=== PATIENT | female | born 1980 | race Caucasian/White ===

== ENCOUNTER 2020-05-23 18:01 | Observation (INO) | payer BC ==
[~2020-05-23] VITALS: Ht 170.2 cm; Wt 107.5 kg
[2020-05-23] MEDS ORDERED: AMPICILLIN SODIUM 2 GM in NS 100 ML IV ONE (19:00)
[2020-05-23] MEDS ORDERED: LR 1,000 ML IV SCH (19:00)
[2020-05-23] MEDS ORDERED: NALBUPHINE HCL 10 MG/ML AMP IVP PRN (19:00)
[2020-05-23] MEDS ORDERED: LR 1,000 ML IV ONE (19:00)
[2020-05-23 19:30] LABS: BILIRUBIN,URINE NEGATIVE (NEGATIVE); BLOOD, URINE NEGATIVE (NEGATIVE); CLARITY/URINE CLEAR (CLEAR); COLOR,URINE YELLOW (YELLOW); GLUCOSE,URINE NEGATIVE (NEGATIVE); KETONES,URINE NEGATIVE (NEGATIVE); LEUKOCYTE ESTERASE ,URINE 2+ (NEGATIVE); NITRITE, URINE NEGATIVE (NEGATIVE); PROTEIN URINE TRACE (NEGATIVE); UROBILINOGEN,URINE 0.2 (0.2-1.0)
[2020-05-23 19:39] LABS: BASOPHILS % (AUTO) 0.5 % (0.0-2.0); EOSINOPHILS # (AUTO) 0.1 K/uL (0.0-0.4); EOSINOPHILS % (AUTO) 0.7 % (0.0-4.0); HEMOGLOBIN 11.1 g/dL (12.0-16.0); LYMPHOCYTES # (AUTO) 1.7 K/uL (1.0-5.5); LYMPHOCYTES % (AUTO) 17.5 % (20.5-51.5); MEAN CORPUSCULAR HEMOGLOBIN 28 pg (27-31); MEAN CORPUSCULAR HGB CONC 34 % (32-36); MEAN CORPUSCULAR VOLUME 84 fL (79.0-98.0); MONOCYTES # (AUTO) 0.7 K/uL (0.0-1.0); MONOCYTES % (AUTO) 7.4 % (1.7-9.3); NEUTROPHILS # (AUTO) 7.3 K/uL (1.8-7.7); NEUTROPHILS % (AUTO) 73.9 % (40.0-70.0); PLATELET COUNT (AUTO) 322 K/uL (130-430); RED BLOOD CELL COUNT(AUTO) 3.91 MIL/uL (4.2-6.2); RED CELL DISTRIBUTION WIDTH 15.5 % (9.0-15.0); WHITE BLOOD COUNT (AUTO) 9.9 K/uL (4.8-10.8)
[2020-05-23 19:46] LABS: BACTERIA,URINE MODERATE /HPF (None Seen)
[2020-05-23 20:08] LABS: POTASSIUM 3.7 mmol/L (3.5-5.1)
[2020-05-23 20:09] LABS: CALCIUM 8.6 mg/dL (8.4-11.0); CREATININE 0.58 mg/dL (0.55-1.30)
[2020-05-23 20:10] LABS: ALBUMIN 2.4 g/dL (3.4-4.8); TOTAL BILIRUBIN 0.2 mg/dL (0.0-1.0)
[2020-05-23 20:12] LABS: URIC ACID 3.9 mg/dL (2.4-7.0)
[2020-05-23 20:14] LABS: INR 0.9 (0.8-1.2); PROTHROMBIN TIME 9.2 SECS (9.5-12.5)
== END 2020-05-23 23:49 | disposition home or self-care (01) ==
LOC: SPU 18:01 → OBSVTOIN 18:01 → INTOOBSV 18:01
PROVIDERS: ADMIT Specialist; ATTEND Specialist
DX: O62.9 Abnormality of forces of labor, unspecified (principal); Z3A.34 34 weeks gestation of pregnancy; Z79.899 Other long term (current) drug therapy
CPT/HCPCS: 36415; 80053; 81000; 84550; 85025; 85384; 85610; 85730; 86592; 86886; 86900; 86901; 87086; G0378; J0290

== ENCOUNTER 2020-05-24 09:39 | Inpatient (IN) | payer BC, SELFPAY ==
[~2020-05-24] VITALS: Ht 170.2 cm; Wt 107.5 kg
[2020-05-24] MEDS ORDERED: MAGNESIUM SULFATE IN WATER 100 ML IV ONE (10:15)
[2020-05-24] MEDS ORDERED: MAGNESIUM SULFATE IN WATER 500 ML IV PRN (10:15)
[2020-05-24] MEDS ORDERED: OXYTOCIN/0.9 % SODIUM CHLORIDE 1,000 ML IV SCH ×3 (10:15→17:30)
[2020-05-24] MEDS ORDERED: AZITHROMYCIN 500 MG in NS 250 ML IV ONE (10:15)
[2020-05-24] MEDS ORDERED: TERBUTALINE SULFATE 1 MG/ML VIAL SUBCUT ONE (10:15)
[2020-05-24] MEDS ORDERED: LR 1,000 ML IV SCH (10:15)
[2020-05-24] MEDS ORDERED: LR 1,000 ML IV ONE (10:15)
[2020-05-24 10:45] LABS: BASOPHILS # (AUTO) 0.1 K/uL (0.0-0.2); BASOPHILS % (AUTO) 0.6 % (0.0-2.0); EOSINOPHILS # (AUTO) 0.2 K/uL (0.0-0.4); EOSINOPHILS % (AUTO) 1.4 % (0.0-4.0); HEMATOCRIT 32.9 % (36-48); LYMPHOCYTES # (AUTO) 1.8 K/uL (1.0-5.5); LYMPHOCYTES % (AUTO) 16.8 % (20.5-51.5); MEAN CORPUSCULAR HEMOGLOBIN 28 pg (27-31); MEAN CORPUSCULAR HGB CONC 33 % (32-36); MEAN CORPUSCULAR VOLUME 84 fL (79.0-98.0); MONOCYTES # (AUTO) 0.8 K/uL (0.0-1.0); MONOCYTES % (AUTO) 7.6 % (1.7-9.3); NEUTROPHILS # (AUTO) 7.8 K/uL (1.8-7.7); NEUTROPHILS % (AUTO) 73.6 % (40.0-70.0); PLATELET COUNT (AUTO) 325 K/uL (130-430); RED BLOOD CELL COUNT(AUTO) 3.91 MIL/uL (4.2-6.2); RED CELL DISTRIBUTION WIDTH 15.2 % (9.0-15.0); WHITE BLOOD COUNT (AUTO) 10.5 K/uL (4.8-10.8)
[2020-05-24] MEDS ORDERED: MAGNESIUM SULFATE 50 ML IV ONE (10:45)
[2020-05-24] MEDS ORDERED: ROPIVACAINE HCL/PF 0.2% 200 ML ONE (10:56)
[2020-05-24] MEDS ORDERED: fentaNYL CITRATE/PF 100 MCG/2 ML AMP ONE (10:56)
[2020-05-24] MEDS ORDERED: NALOXONE HCL 0.4 MG/ML AMP (NARCAN) IVP PRN ×3 (11:30→23:15)
[2020-05-24] MEDS ORDERED: FENT2mCg/mL-ROPIVA0.2%/NS EPID 200 ML EP SCH (11:30)
[2020-05-24] MEDS ORDERED: ONDANSETRON HCL 4 MG/2 ML VIAL IVP PRN (11:30)
[2020-05-24] MEDS ORDERED: DIPHENHYDRAMINE INJ 50 MG/ML VIAL IVP PRN (11:30)
[2020-05-24] MEDS ORDERED: AMPICILLIN SODIUM 2 GM in NS 100 ML IV SCH (12:00)
[2020-05-24] MEDS ORDERED: OXYTOCIN 10 UNIT/ML VIAL ONE (15:32)
[2020-05-24] MEDS ORDERED: MEASLES,MUMPS&RUBELLA VACC/PF 12500 UNIT/0.5 ML VIAL SUBQ PRN ×2 (17:00→17:30)
[2020-05-24] MEDS ORDERED: DIPH-TET-PERTUS Vaccine 0.5 ML VIAL (ADACEL) I.M. PRN ×2 (17:00→17:30)
[2020-05-24] MEDS ORDERED: LANOLIN 7 GM OINT. TP PRN ×2 (17:00→17:30)
[2020-05-24] MEDS ORDERED: DOCUSATE SODIUM 100 MG CAPSULE PO PRN (17:00)
[2020-05-24] MEDS ORDERED: HYDROCORTISONE 0.5%, 28.35 GM TOPICAL CREAM TP PRN ×2 (17:00→17:30)
[2020-05-24] MEDS ORDERED: RHO(D) IMMUNE GLOBULIN/MALTOSE 1500 UNITS/1.3 ML (WINHRO) IM PRN ×2 (17:00→17:30)
[2020-05-24] MEDS ORDERED: HYDROcodone/ACETAMIN 5-325 MG TAB (NORCO/ VICODIN) PO PRN ×3 (17:00→23:15)
[2020-05-24] MEDS ORDERED: OXYTOCIN/0.9 % SODIUM CHLORIDE 1,000 ML IV ONE ×2 (17:00→17:30)
[2020-05-24] MEDS ORDERED: WITCH HAZEL LEAF 1 MED.PAD MED.PAD TP PRN ×2 (17:00→17:30)
[2020-05-24] MEDS ORDERED: OXYCODONE/ACETAMINOPHEN 5-325 TABLET PO PRN ×6 (17:00→23:15)
[2020-05-24] MEDS ORDERED: METHYLERGONOVINE MALEATE 0.2 MG TABLET PO PRN (17:30)
[2020-05-24] MEDS ORDERED: DERMOPLAST SPRAY TP PRN (17:30)
[2020-05-24] MEDS ORDERED: SENNOSIDES/DOCUSATE SODIUM 1 TAB TABLET(SENOKOT-S) PO PRN (17:30)
[2020-05-24] MEDS ORDERED: ANUSOL 1 EA SUPP.RECT (PREPARATION H) RC PRN (17:30)
[2020-05-24] MEDS ORDERED: IBUPROFEN 600 MG TABLET PO SCH (18:00)
[2020-05-24] MEDS: IBUPROFEN 600 MG TABLET PO SCH (18:07)
[2020-05-24 19:44] VITALS: BP_SYST 167
[2020-05-24] MEDS ORDERED: TEMAZEPAM 15 MG CAPSULE PO PRN ×2 (21:00)
[2020-05-25] MEDS: IBUPROFEN 600 MG TABLET PO SCH ×4 (06:06→17:45)
[2020-05-25 08:21] LABS: HEMATOCRIT 32.4 % (36-48); HEMOGLOBIN 10.7 g/dL (12.0-16.0)
[2020-05-25] MEDS ORDERED: AZITHROMYCIN 250 MG in NS 250 ML IV SCH (10:00)
[2020-05-26] MEDS: IBUPROFEN 600 MG TABLET PO SCH ×5 (00:02→23:28)
[2020-05-26] MEDS: DOCUSATE SODIUM 100 MG CAPSULE PO PRN ×2 (00:03→06:00)
== END 2020-05-26 23:31 | disposition home or self-care (01) | DRG 805 ==
LOC: SPU 09:39
PROVIDERS: ADMIT Specialist; ATTEND Specialist
PROC: 10E0XZZ Delivery of Products of Conception, External Approach (ICD-10-PCS; principal; 2020-05-24)
PROC: 3E0R3BZ Introduction of Anesthetic Agent into Spinal Canal, Percutaneous Approach (ICD-10-PCS; 2020-05-24)
PROC: 00HU33Z Insertion of Infusion Device into Spinal Canal, Percutaneous Approach (ICD-10-PCS; 2020-05-24)
DX: O69.81X0 Labor and delivery complicated by cord around neck, without compression, not applicable or unspecified (principal); O60.14X0 Preterm labor third trimester with preterm delivery third trimester, not applicable or unspecified; Z37.2 Twins, both liveborn; Z20.822 Contact with and (suspected) exposure to COVID-19; Z3A.34 34 weeks gestation of pregnancy
CPT/HCPCS: 36415; 85018-TC; 85025; 86592; J0290; J0456; J2590; J3010; J3475; J7050

== ENCOUNTER 2022-11-28 17:25 | Emergency (ER) | payer BC ==
[~2022-11-28] VITALS: Ht 170.2 cm; Wt 95.3 kg
[2022-11-28 17:44] VITALS: BP_SYST 124; PULSE 82; RESP 16; TEMP 97.7; O2SAT 97
[2022-11-28] MEDS ORDERED: NACL 0.9% 1,000 ML IV ONE (18:15)
[2022-11-28] MEDS ORDERED: KETOROLAC TROMETHAMINE 30 MG VIAL IVP ONE (18:15)
[2022-11-28 18:56] LABS: BASOPHILS % (AUTO) 0.5 % (0.0-2.0); EOSINOPHILS # (AUTO) 0.2 K/uL (0.0-0.4); EOSINOPHILS % (AUTO) 2.2 % (0.0-4.0); HEMATOCRIT 38.7 % (36-48); HEMOGLOBIN 12.8 g/dL (12.0-16.0); LYMPHOCYTES # (AUTO) 2.2 K/uL (1.0-5.5); LYMPHOCYTES % (AUTO) 23.2 % (20.5-51.5); MEAN CORPUSCULAR HEMOGLOBIN 29 pg (27-31); MEAN CORPUSCULAR HGB CONC 33 % (32-36); MEAN CORPUSCULAR VOLUME 86 fL (79.0-98.0); MONOCYTES # (AUTO) 0.4 K/uL (0.0-1.0); MONOCYTES % (AUTO) 4.3 % (1.7-9.3); NEUTROPHILS # (AUTO) 6.8 K/uL (1.8-7.7); NEUTROPHILS % (AUTO) 69.8 % (40.0-70.0); PLATELET COUNT (AUTO) 402 K/uL (130-430); RED BLOOD CELL COUNT(AUTO) 4.48 MIL/uL (4.2-6.2); RED CELL DISTRIBUTION WIDTH 12.7 % (9.0-15.0); WHITE BLOOD COUNT (AUTO) 9.7 K/uL (4.8-10.8)
[2022-11-28 18:59] LABS: CALCIUM 8.8 mg/dL (8.4-11.0); CREATININE 0.62 mg/dL (0.55-1.30); POTASSIUM 3.9 mmol/L (3.5-5.1)
[2022-11-28 18:59] LABS: BILIRUBIN,URINE NEGATIVE (NEGATIVE); BLOOD, URINE NEGATIVE (NEGATIVE); CLARITY/URINE CLEAR (CLEAR); COLOR,URINE YELLOW (YELLOW); GLUCOSE,URINE NEGATIVE (NEGATIVE); KETONES,URINE NEGATIVE (NEGATIVE); LEUKOCYTE ESTERASE ,URINE NEGATIVE (NEGATIVE); NITRITE, URINE NEGATIVE (NEGATIVE); PROTEIN URINE NEGATIVE (NEGATIVE)
[2022-11-28 19:04] LABS: ALBUMIN 3.6 g/dL (3.4-4.8); TOTAL BILIRUBIN 0.2 mg/dL (0.0-1.0); TOTAL PROTEIN, SERUM 7.2 g/dL (6.4-8.3)
[2022-11-28] MEDS ORDERED: KETO10TA2 PO (20:54)
[2022-11-28 21:27] VITALS: BP_SYST 141; PULSE 72; RESP 18; TEMP 98.3; O2SAT 99
== END 2022-11-28 21:26 | disposition home or self-care (01) ==
LOC: SED 17:25
DX: N23 Unspecified renal colic (principal); Z79.899 Other long term (current) drug therapy
CPT/HCPCS: 99285; 74176; 96374; 96361; 80053; 83690; 85025; 36415; 76376; 81003; J1885; J7030

== ENCOUNTER 2022-12-10 11:21 | Inpatient (IN) | payer BC ==
[~2022-12-10] VITALS: Ht 170.2 cm; Wt 100.7 kg
[~2022-12-10 11:21] MED LIST: KETO10TA2 PO
[2022-12-10 11:34] VITALS: BP_SYST 93; PULSE 73; RESP 20; TEMP 98; O2SAT 96
[2022-12-10] MEDS ORDERED: MORPHINE 4 MG INJ. 4 MG/ML VIAL IVP ONE ×2 (12:00→14:15)
[2022-12-10] MEDS ORDERED: ONDANSETRON HCL 4 MG/2 ML VIAL IVP ONE (12:00)
[2022-12-10 12:24] LABS: BASOPHILS # (AUTO) 0.1 K/uL (0.0-0.2); BASOPHILS % (AUTO) 0.6 % (0.0-2.0); EOSINOPHILS # (AUTO) 0.2 K/uL (0.0-0.4); EOSINOPHILS % (AUTO) 1.8 % (0.0-4.0); HEMATOCRIT 38.3 % (36-48); HEMOGLOBIN 12.8 g/dL (12.0-16.0); LYMPHOCYTES # (AUTO) 2.5 K/uL (1.0-5.5); MEAN CORPUSCULAR HEMOGLOBIN 29 pg (27-31); MEAN CORPUSCULAR HGB CONC 34 % (32-36); MEAN CORPUSCULAR VOLUME 86 fL (79.0-98.0); MONOCYTES # (AUTO) 0.4 K/uL (0.0-1.0); MONOCYTES % (AUTO) 4.2 % (1.7-9.3); NEUTROPHILS # (AUTO) 5.9 K/uL (1.8-7.7); NEUTROPHILS % (AUTO) 65.4 % (40.0-70.0); PLATELET COUNT (AUTO) 503 K/uL (130-430); RED BLOOD CELL COUNT(AUTO) 4.45 MIL/uL (4.2-6.2); RED CELL DISTRIBUTION WIDTH 13.1 % (9.0-15.0)
[2022-12-10 12:30] LABS: CREATININE 0.63 mg/dL (0.55-1.30); POTASSIUM 3.8 mmol/L (3.5-5.1)
[2022-12-10 12:35] LABS: ALBUMIN 3.5 g/dL (3.4-4.8); TOTAL BILIRUBIN 0.4 mg/dL (0.0-1.0); TOTAL PROTEIN, SERUM 7.2 g/dL (6.4-8.3)
[2022-12-10] MEDS ORDERED: MORPHINE 4 MG INJ. 4 MG/ML VIAL ONE (14:13)
[2022-12-10 14:15] LABS: BILIRUBIN,URINE 1+ (NEGATIVE); CLARITY/URINE CLEAR (CLEAR); COLOR,URINE YELLOW (YELLOW); GLUCOSE,URINE NEGATIVE (NEGATIVE); KETONES,URINE TRACE (NEGATIVE); PROTEIN URINE TRACE (NEGATIVE)
[2022-12-10 14:16] LABS: BLOOD, URINE NEGATIVE (NEGATIVE); LEUKOCYTE ESTERASE ,URINE NEGATIVE (NEGATIVE); NITRITE, URINE NEGATIVE (NEGATIVE)
[2022-12-10 14:24] LABS: BACTERIA,URINE FEW /HPF (None Seen)
[2022-12-10 14:25] LABS: MUCUS,URINE 1+ /LPF (None Seen)
[2022-12-10] MEDS ORDERED: MORPHINE 2 MG/ML INJ. SYRINGE IVP PRN ×2 (16:15)
[2022-12-10] MEDS ORDERED: POTASSIUM CHLORIDE 20 MEQ TAB.PRT.SR PO PRN (16:15)
[2022-12-10] MEDS ORDERED: ONDANSETRON HCL 4 MG/2 ML VIAL IVP PRN (16:15)
[2022-12-10] MEDS ORDERED: ACETAMINOPHEN 325 MG TABLET PO PRN ×2 (16:15)
[2022-12-10] MEDS ORDERED: MUPIROCIN 2% TOPICAL OINTMENT 22 GM NS PRN (16:15)
[2022-12-10] MEDS ORDERED: LORazepam 2 MG/ML VIAL IVP PRN (16:15)
[2022-12-10] MEDS ORDERED: MAGNESIUM SULFATE 50 ML IV PRN (16:15)
[2022-12-10] MEDS ORDERED: DOCUSATE SODIUM 100 MG CAPSULE PO PRN (16:15)
[2022-12-10] MEDS ORDERED: cefTRIAXone 1 GM IVPB PREMIX 50 ML IV ONE ×2 (16:30→17:15)
[2022-12-10] MEDS: NACL 0.9% 1,000 ML IV SCH (17:46)
[2022-12-10 17:54] VITALS: BP_SYST 123; PULSE 76; RESP 18; TEMP 97.1; O2SAT 97
[2022-12-10 18:05] VITALS: BP_SYST 123; PULSE 76; RESP 18; TEMP 97.1
[2022-12-10 18:16] VITALS: O2SAT 96
[2022-12-10 20:05] VITALS: BP_SYST 115; PULSE 76; RESP 17; TEMP 96.9; O2SAT 99
[2022-12-11 00:29] VITALS: BP_SYST 112; PULSE 73; RESP 15; TEMP 96.8; O2SAT 99
[2022-12-11] MEDS: NACL 0.9% 1,000 ML IV SCH ×3 (05:20→22:30)
[2022-12-11 06:15] LABS: BASOPHILS % (AUTO) 0.2 % (0.0-2.0); EOSINOPHILS # (AUTO) 0.1 K/uL (0.0-0.4); EOSINOPHILS % (AUTO) 0.7 % (0.0-4.0); HEMATOCRIT 29.3 % (36-48); HEMOGLOBIN 9.8 g/dL (12.0-16.0); LYMPHOCYTES # (AUTO) 2.3 K/uL (1.0-5.5); LYMPHOCYTES % (AUTO) 18.8 % (20.5-51.5); MEAN CORPUSCULAR HEMOGLOBIN 29 pg (27-31); MEAN CORPUSCULAR HGB CONC 34 % (32-36); MEAN CORPUSCULAR VOLUME 86 fL (79.0-98.0); MONOCYTES # (AUTO) 0.7 K/uL (0.0-1.0); MONOCYTES % (AUTO) 5.7 % (1.7-9.3); NEUTROPHILS # (AUTO) 9.1 K/uL (1.8-7.7); NEUTROPHILS % (AUTO) 74.6 % (40.0-70.0); PLATELET COUNT (AUTO) 388 K/uL (130-430); RED CELL DISTRIBUTION WIDTH 13.1 % (9.0-15.0); WHITE BLOOD COUNT (AUTO) 12.2 K/uL (4.8-10.8)
[2022-12-11 06:21] LABS: CREATININE 0.53 mg/dL (0.55-1.30); POTASSIUM 3.4 mmol/L (3.5-5.1)
[2022-12-11 08:00] VITALS: BP_SYST 129; PULSE 76; RESP 18; TEMP 97.6; O2SAT 99
[2022-12-11] MEDS ORDERED: SIMETHICONE 80 MG TAB.CHEW PO ONE (08:30)
[2022-12-11 09:00] LABS: ALBUMIN 3.2 g/dL (3.4-4.8); BILIRUBIN,DIRECT 0.1 mg/dL (0.0-0.3); TOTAL BILIRUBIN 0.4 mg/dL (0.0-1.0); TOTAL PROTEIN, SERUM 6.3 g/dL (6.4-8.3)
[2022-12-11 10:19] VITALS: O2SAT 98
[2022-12-11 10:47] LABS: HCG,QUAL RESULT POSITIVE (NEGATIVE)
[2022-12-11 12:00] VITALS: BP_SYST 124; PULSE 77; RESP 16; TEMP 96.8; O2SAT 100
[2022-12-11 12:18] LABS: HCG,QUAL RESULT POSITIVE (NEGATIVE)
[2022-12-11 16:00] VITALS: BP_SYST 130; PULSE 85; RESP 16; TEMP 97.3; O2SAT 100
[2022-12-11] MEDS: cefTRIAXone 1 GM IVPB PREMIX 50 ML IV SCH (17:11)
[2022-12-11 20:00] VITALS: BP_SYST 125; PULSE 84; RESP 18; TEMP 96.5; O2SAT 100
[2022-12-11] MEDS ORDERED: SIMETHICONE 80 MG TAB.CHEW PO PRN (20:45)
[2022-12-11 22:59] LABS: HEMATOCRIT 26.1 % (36-48); HEMOGLOBIN 8.9 g/dL (12.0-16.0)
[2022-12-12] VITALS: BP_SYST 128; PULSE 77; RESP 16; TEMP 96.2; O2SAT 99
[2022-12-12] MEDS: NACL 0.9% 1,000 ML IV SCH (04:08)
[2022-12-12 07:18] LABS: BASOPHILS % (AUTO) 0.4 % (0.0-2.0); EOSINOPHILS # (AUTO) 0.3 K/uL (0.0-0.4); EOSINOPHILS % (AUTO) 3.3 % (0.0-4.0); HEMATOCRIT 25.2 % (36-48); HEMOGLOBIN 8.8 g/dL (12.0-16.0); LYMPHOCYTES # (AUTO) 2.4 K/uL (1.0-5.5); MEAN CORPUSCULAR HEMOGLOBIN 30 pg (27-31); MEAN CORPUSCULAR HGB CONC 35 % (32-36); MEAN CORPUSCULAR VOLUME 86 fL (79.0-98.0); MONOCYTES # (AUTO) 0.4 K/uL (0.0-1.0); MONOCYTES % (AUTO) 5.4 % (1.7-9.3); NEUTROPHILS % (AUTO) 61.9 % (40.0-70.0); PLATELET COUNT (AUTO) 347 K/uL (130-430); RED BLOOD CELL COUNT(AUTO) 2.94 MIL/uL (4.2-6.2); RED CELL DISTRIBUTION WIDTH 13.2 % (9.0-15.0); WHITE BLOOD COUNT (AUTO) 8.1 K/uL (4.8-10.8)
[2022-12-12 07:28] LABS: CALCIUM 8.1 mg/dL (8.4-11.0); CREATININE 0.54 mg/dL (0.55-1.30); POTASSIUM 3.4 mmol/L (3.5-5.1)
[2022-12-12 08:30] VITALS: BP_SYST 105; PULSE 84; RESP 17; TEMP 97.4; O2SAT 100
[2022-12-12 09:29] VITALS: O2SAT 100
[2022-12-12] MEDS: cefTRIAXone 1 GM IVPB PREMIX 50 ML IV SCH (18:18)
[2022-12-12 20:59] VITALS: BP_SYST 121; PULSE 81; RESP 12; TEMP 97.5; O2SAT 99
[2022-12-12 21:06] VITALS: BP_SYST 121; PULSE 81; RESP 12; TEMP 97.5; O2SAT 99
== END 2022-12-12 21:30 | disposition home or self-care (01) | DRG 445 ==
LOC: SED 11:21 → SMU 16:06
PROVIDERS: ADMIT Family Medicine; ATTEND Family Medicine
DX: K80.64 Calculus of gallbladder and bile duct with chronic cholecystitis without obstruction (principal); E44.1 Mild protein-calorie malnutrition; E66.9 Obesity, unspecified; N20.0 Calculus of kidney; N92.0 Excessive and frequent menstruation with regular cycle; E87.6 Hypokalemia; D72.829 Elevated white blood cell count, unspecified; D64.9 Anemia, unspecified; Z79.899 Other long term (current) drug therapy; Z68.34 Body mass index [BMI] 34.0-34.9, adult
CPT/HCPCS: 36415; 76700-TC; 76817; 80048; 80053; 80076; 81000; 82150; 83605; 83690; 83735; 84702; 84703; 85018; 85025; 87040; 87086; 96374; 96375; 96376; 99285; J0696; J2270; J2405; J7030

== ENCOUNTER 2022-12-21 17:00 | Observation (INO) | payer BC ==
[2022-12-20 12:34] LABS: BILIRUBIN,URINE NEGATIVE (NEGATIVE); BLOOD, URINE TRACE (NEGATIVE); CLARITY/URINE CLEAR (CLEAR); GLUCOSE,URINE NEGATIVE (NEGATIVE); KETONES,URINE 1+ (NEGATIVE); LEUKOCYTE ESTERASE ,URINE NEGATIVE (NEGATIVE); NITRITE, URINE NEGATIVE (NEGATIVE); PH,URINE 6.5 (5.0-8.0); PROTEIN URINE 1+ (NEGATIVE)
[2022-12-20 12:35] LABS: UROBILINOGEN,URINE 0.2 (0.2-1.0)
[2022-12-20 12:37] LABS: BACTERIA,URINE FEW /HPF (None Seen); COLOR,URINE YELLOW (YELLOW); RBC,URINE 0-3 /HPF (0-3); WBC,URINE 0-3 /HPF (0-3)
[2022-12-20 12:38] LABS: MUCUS,URINE 1+ /LPF (None Seen)
[2022-12-20 12:40] LABS: BASOPHILS # (AUTO) 0.1 K/uL (0.0-0.2); BASOPHILS % (AUTO) 0.5 % (0.0-2.0); EOSINOPHILS # (AUTO) 0.2 K/uL (0.0-0.4); EOSINOPHILS % (AUTO) 1.9 % (0.0-4.0); HEMATOCRIT 34.1 % (36-48); HEMOGLOBIN 11.5 g/dL (12.0-16.0); LYMPHOCYTES # (AUTO) 1.8 K/uL (1.0-5.5); LYMPHOCYTES % (AUTO) 17.5 % (20.5-51.5); MEAN CORPUSCULAR HEMOGLOBIN 29 pg (27-31); MEAN CORPUSCULAR HGB CONC 34 % (32-36); MEAN CORPUSCULAR VOLUME 85 fL (79.0-98.0); MONOCYTES # (AUTO) 0.5 K/uL (0.0-1.0); MONOCYTES % (AUTO) 5.1 % (1.7-9.3); NEUTROPHILS # (AUTO) 7.7 K/uL (1.8-7.7); PLATELET COUNT (AUTO) 668 K/uL (130-430); RED BLOOD CELL COUNT(AUTO) 4.01 MIL/uL (4.2-6.2); RED CELL DISTRIBUTION WIDTH 13.3 % (9.0-15.0); WHITE BLOOD COUNT (AUTO) 10.2 K/uL (4.8-10.8)
[~2022-12-21] VITALS: Ht 170.2 cm; Wt 94.1 kg
[2022-12-21 07:01] VITALS: O2SAT 98
[2022-12-21 14:05] VITALS: BP_SYST 142; PULSE 81; RESP 20
[2022-12-21 15:12] LABS: BASOPHILS % (AUTO) 0.1 % (0.0-2.0); HEMATOCRIT 32.4 % (36-48); HEMOGLOBIN 10.7 g/dL (12.0-16.0); LYMPHOCYTES # (AUTO) 0.7 K/uL (1.0-5.5); LYMPHOCYTES % (AUTO) 6.3 % (20.5-51.5); MEAN CORPUSCULAR HEMOGLOBIN 28 pg (27-31); MEAN CORPUSCULAR HGB CONC 33 % (32-36); MEAN CORPUSCULAR VOLUME 85 fL (79.0-98.0); MONOCYTES # (AUTO) 0.2 K/uL (0.0-1.0); MONOCYTES % (AUTO) 1.9 % (1.7-9.3); NEUTROPHILS # (AUTO) 10.8 K/uL (1.8-7.7); NEUTROPHILS % (AUTO) 91.7 % (40.0-70.0); PLATELET COUNT (AUTO) 651 K/uL (130-430); RED BLOOD CELL COUNT(AUTO) 3.83 MIL/uL (4.2-6.2); WHITE BLOOD COUNT (AUTO) 11.8 K/uL (4.8-10.8)
[~2022-12-21 17:00] MED LIST changes: +ACETAMINOPHEN I.V. 1000 MG 100 ML IV ONE; +BUPIVACAINE /PF 0.25% 30 ML VIAL INJ ONE; +DESFLURANE 15 MIN GAS INH ONE; +DEXAMETHASONE SOD PHOSPHATE 4 MG/ML VIAL ONE; +HYDROmorphone 1 MG/ML INJ. CARTRIDGE IVP PRN; +KETOROLAC TROMETHAMINE 30 MG VIAL ONE; +LIDOCAINE 2%, 20 ML MDV ONE; +LIDOCAINE/EPI 1% 1:100000 20 ML VIAL ONE; +LR 1,000 ML IV SCH; +LR 1,000 ML IV.SOLN IV ONE; +MEPERIDINE HCL/PF 25 MG/ML DISP.SYRIN IVP PRN; +METOCLOPRAMIDE HCL 10 MG/2 ML VIAL IVP PRN; +MIDAZOLAM HCL 2 MG/2 ML VIAL (VERSED) ONE; +NS IRRIG SOLN 1000 ML IR ONE; +ONDANSETRON HCL 4 MG/2 ML VIAL ONE; +PROPOFOL 200MG/ 20ML VIAL (DIPRIVAN) IV ONE; +ROCURONIUM BROMIDE 10 MG/ML (ZEMURON) ONE; +SUGAMMADEX SODIUM 200 MG/2 ML VIAL IV ONE; +WATER FOR IRRIGATION,STERILE 1,000 ML IRRIG.SOLN IR ONE; +ceFAZolin SODIUM 2 GM VIAL ONE; +fentaNYL CITRATE/PF 100 MCG/2 ML AMP ONE
[2022-12-21] MEDS ORDERED: OXYCODONE/ACETAMINOPHEN 5-325 TABLET PO PRN ×3 (20:00→20:30)
[2022-12-21] MEDS ORDERED: HYDROcodone/ACETAMIN 5-325 MG TAB (NORCO/ VICODIN) PO PRN ×2 (20:00→20:30)
[2022-12-21] MEDS ORDERED: LR 1,000 ML IV SCH ×2 (20:30→20:45)
[2022-12-21] MEDS: OXYCODONE/ACETAMINOPHEN 5-325 TABLET PO PRN (20:41)
[2022-12-21] MEDS ORDERED: TEMAZEPAM 15 MG CAPSULE PO SCH (21:00)
[2022-12-21] MEDS: SIMETHICONE 80 MG TAB.CHEW PO PRN (21:03)
[2022-12-22] MEDS ORDERED: IBUPROFEN 600 MG TABLET PO SCH
[2022-12-22] MEDS: SIMETHICONE 80 MG TAB.CHEW PO PRN ×4 (00:03→12:30)
[2022-12-22] MEDS: IBUPROFEN 600 MG TABLET PO SCH ×2 (00:03→06:45)
[2022-12-22] MEDS ORDERED: IBUPROFEN 600 MG TABLET ONE ×2 (00:05→06:47)
[2022-12-22 06:30] LABS: BASOPHILS % (AUTO) 0.4 % (0.0-2.0); EOSINOPHILS # (AUTO) 0.1 K/uL (0.0-0.4); EOSINOPHILS % (AUTO) 0.6 % (0.0-4.0); HEMATOCRIT 26.7 % (36-48); LYMPHOCYTES # (AUTO) 2.3 K/uL (1.0-5.5); LYMPHOCYTES % (AUTO) 23.3 % (20.5-51.5); MEAN CORPUSCULAR HEMOGLOBIN 29 pg (27-31); MEAN CORPUSCULAR HGB CONC 34 % (32-36); MEAN CORPUSCULAR VOLUME 85 fL (79.0-98.0); MONOCYTES # (AUTO) 0.7 K/uL (0.0-1.0); MONOCYTES % (AUTO) 7.3 % (1.7-9.3); NEUTROPHILS # (AUTO) 6.8 K/uL (1.8-7.7); NEUTROPHILS % (AUTO) 68.4 % (40.0-70.0); PLATELET COUNT (AUTO) 552 K/uL (130-430); RED BLOOD CELL COUNT(AUTO) 3.16 MIL/uL (4.2-6.2); RED CELL DISTRIBUTION WIDTH 12.8 % (9.0-15.0)
[2022-12-22] MEDS: OXYCODONE/ACETAMINOPHEN 5-325 TABLET PO PRN (12:58)
== END 2022-12-22 14:00 | disposition home or self-care (01) ==
LOC: SDS 17:00 → SPU 17:33 → UNDOFXSDCSVC 17:33 → UNDOFXSDCACCOM 17:33 → SMU 17:33
PROVIDERS: ADMIT Specialist; ATTEND Specialist
DX: O00.101 Right tubal pregnancy without intrauterine pregnancy (principal); K80.20 Calculus of gallbladder without cholecystitis without obstruction; D25.9 Leiomyoma of uterus, unspecified; K66.0 Peritoneal adhesions (postprocedural) (postinfection); N91.0 Primary amenorrhea; E66.9 Obesity, unspecified; Z98.51 Tubal ligation status
CPT/HCPCS: 81000; 84702; 85025 ×3; 86886; 86900; 86901; 87081; 36415 ×3; 93005; 71046; 59150; 58661; 58120; 88305; J3490 ×2; J1100; J1885; J2001; J3465; J2405; J2704; J3010; J7120 ×2; G0378 ×2; C1727; J0131